=== PATIENT | female | born 1995 | race American Indian/Alaskan Native ===

== ENCOUNTER 2017-05-22 09:44 | Emergency (ER) | payer MEDICAID, OTHER ==
[2017-05-22 10:12] VITALS: BP 104/67
--- NOTE | 2017-05-22 13:25 | Emergency Department Report ---
HPI - General Chief Complaint: Allergic Reaction Time Seen by Provider: 05/22/17 13:10 ED Past Medical Hx - Past Medical History Previous Medical History?: No - Surgical History Past Surgical History?: No - Social History Smoking Status: Never Smoker Substance Use Type: Marijuana - Medications Home Medications: Home Medications Medication Instructions Recorded Confirmed Last Taken Type Cephalexin [Keflex] 500 mg PO Q12HR #14 cap 12/21/15 Unknown Rx Ibuprofen [Motrin] 600 mg PO Q8H PRN #12 tablet 12/21/15 Unknown Rx ED Review of Systems ROS: Stated complaint: ALLERGIES Other details as noted in HPI Physical Exam - Physical Exam Vital Signs: Vital Signs 05/22/17 10:08 Temperature 98.6 F Pulse Rate 89 Respiratory 16 Rate Blood Pressure 104/67 O2 Sat by Pulse 100 Oximetry ED Course Vital Signs 05/22/17 10:08 Temperature 98.6 F Pulse Rate 89 Respiratory 16 Rate Blood Pressure 104/67 O2 Sat by Pulse 100 Oximetry Critical care attestation.: If time is entered above; I have spent that time in minutes in the direct care of this critically ill patient, excluding procedure time. ED Disposition Condition: Stable Referrals: PRIMARY CARE [Primary Care Provider] - 3-5 Days Forms: AMA Form
== END 2017-05-22 13:12 | disposition left against medical advice (07) ==
LOC: ED 09:44
DX: T78.40XA Allergy, unspecified, initial encounter (principal); Z53.21 Procedure and treatment not carried out due to patient leaving prior to being seen by health care provider; X58.XXXA Exposure to other specified factors, initial encounter; Y93.89 Activity, other specified; Y99.8 Other external cause status; Y92.89 Other specified places as the place of occurrence of the external cause

== ENCOUNTER 2018-09-09 10:02 | Inpatient (IN) | payer MEDICAID, OTHER ==
[2018-09-09] MEDS ORDERED: NACL 0.9% 1000 ML 1,000 ML IV ONE ×2 (10:18→13:45)
[2018-09-09] MEDS ORDERED: ZOFRAN IV ONE (10:23)
[2018-09-09 10:40] LABS: Basophils # (Auto) 0.1 K/mm3 (0.0-0.1); Basophils % (Auto) 0.4 % (0.0-1.8); Eosinophils % (Auto) 0.1 % (0.0-4.3); Hematocrit 39.5 % (30.3-42.9); Hemoglobin 13.8 gm/dl (10.1-14.3); Lymphocytes # (Auto) 2.2 K/mm3 (1.2-5.4); Lymphocytes % (Auto) 13.6 % (13.4-35.0); Mean Corpuscular HGB Conc 35 % (30-34); Mean Corpuscular Volume 86 fl (79-97); Monocytes # (Auto) 1.8 K/mm3 (0.0-0.8); Monocytes % (Auto) 10.9 % (0.0-7.3); Platelet Count 294 K/mm3 (140-440); Red Blood Count 4.59 M/mm3 (3.65-5.03); Red Cell Distribution Width 14.3 % (13.2-15.2)
[2018-09-09 10:50] LABS: Bacteria,Urine 4+ /HPF (Negative); Bilirubin,Urine NEG (Negative); Blood,Urine NEG (Negative); Color,Urine Amber (Yellow); Mucus,Urine 3+ /HPF
[2018-09-09 10:51] LABS: RBC,Urine < 1.0 /HPF (0.0-6.0)
--- NOTE | 2018-09-09 11:02 | Emergency Department Report ---
ED N/V/D HPI - General Chief complaint: Nausea/Vomiting/Diarrhea Stated complaint: /HAS NOT EATEN X 7 DAYS Time Seen by Provider: 09/09/18 10:24 Source: patient Mode of arrival: Ambulatory Limitations: No Limitations - History of Present Illness Initial comments: 22-year-old female with no significant past medical history presents to the Hospital complaining of nausea, vomiting, and by mouth intolerance 9 days. Patient took her mother's Zofran with some intermittent improvement but has since run out of the medication. She denies pain, melena, hematochezia, hematemesis, fever, diarrhea, or dysuria. This is her third LMP 07/01/2018. She has not experienced this extreme nausea vomiting with previous pregnancies. She has not yet initiated care. She has not had ultrasound to confirm IUP. She denies history of ectopic, miscarriages, or abortions. She reports 11 pound weight loss in the last 2 weeks. She plans to follow up with a [facility] that is not affiliated here - Related Data Previous Rx's Medication Instructions Recorded Last Taken Type Ibuprofen [Motrin] 600 mg PO Q8H PRN #12 tablet 12/21/15 Unknown Rx cephALEXin [Keflex] 500 mg PO Q12HR #14 cap 12/21/15 Unknown Rx Allergies Allergy/AdvReac Type Severity Reaction Status Date / Time No Known Allergies Allergy Unverified 12/21/15 16:17 ED Review of Systems ROS: Stated complaint: /HAS NOT EATEN X 7 DAYS Other details as noted in HPI Comment: All other systems reviewed and negative ED Past Medical Hx - Past Medical History Previous Medical History?: No - Surgical History Past Surgical History?: No - Social History Smoking Status: Never Smoker Substance Use Type: None - Medications Home Medications: Home Medications Medication Instructions Recorded Confirmed Last Taken Type Ibuprofen [Motrin] 600 mg PO Q8H PRN #12 tablet 12/21/15 Unknown Rx cephALEXin [Keflex] 500 mg PO Q12HR #14 cap 12/21/15 Unknown Rx ED Physical Exam - General Limitations: No Limitations - Other Other exam information: General: No limitations, patient is alert in no acute distress Head exam: Atraumatic, normocephalic Eyes exam: Normal appearance ENT: Dry mucous membranes Neck exam: Normal inspection, full range of motion, no meningismus nontender Respiratory exam: Clear to auscultation bilateral, no wheezes, rales, crackles Cardiovascular: Tachycardic regular rhythm Abdomen: Soft, nondistended, and nontender, with normal bowel sounds, no rebound, or guarding Extremity: Full range of motion normal inspection no deformity Back: Normal Inspection, full range of motion, no tenderness Neurologic: Alert, oriented x3, cranial nerves intact, no motor or sensory def icit Psychiatric: normal affect, normal mood Skin: Warm, dry, intact ED Course Vital Signs 09/09/18 09/09/18 09/09/18 10:15 10:37 10:45 Temperature 98.3 F Pulse Rate 131 H 116 H Respiratory 20 29 H Rate Blood Pressure 109/70 O2 Sat by Pulse 100 100 100 Oximetry 09/09/18 09/09/18 09/09/18 11:01 11:15 11:31 Temperature Pulse Rate 113 H 112 H 98 H Respiratory 21 22 17 Rate Blood Pressure 130/83 130/83 128/69 O2 Sat by Pulse 100 100 100 Oximetry 09/09/18 11:45 Temperature Pulse Rate 119 H Respiratory 22 Rate Blood Pressure 128/69 O2 Sat by Pulse 100 Oximetry - Consultations Consultation #1: 09/09/18 13:59 case d/w earl with myobgyn, will place admit orders ED Medical Decision Making - Lab Data Result diagrams: 09/09/18 10:28 09/09/18 10:28 Lab Results 09/09/18 09/09/18 09/09/18 Range/Units 10:28 10:28 10:28 WBC 16.2 H (4.5-11.0) K/mm3 RBC 4.59 (3.65-5.03) M/mm3 Hgb 13.8 (10.1-14.3) gm/dl Hct 39.5 (30.3-42.9) % MCV 86 (79-97) fl MCH 30 (28-32) pg MCHC 35 H (30-34) % RDW 14.3 (13.2-15.2) % Plt Count 294 (140-440) K/mm3 Lymph % (Auto) 13.6 (13.4-35.0) % [place] % (Auto) 10.9 H (0.0-7.3) % Eos % (Auto) 0.1 (0.0-4.3) % Baso % (Auto) 0.4 (0.0-1.8) % Lymph # 2.2 (1.2-5.4) K/mm3 [place] # 1.8 H (0.0-0.8) K/mm3 Eos # 0.0 (0.0-0.4) K/mm3 Baso # 0.1 (0.0-0.1) K/mm3 Seg Neutrophils % 75.0 H (40.0-70.0) % Seg Neutrophils # 12.2 H (1.8-7.7) K/mm3 Sodium 136 L (137-145) mmol/L Potassium 2.8 L* (3.6-5.0) mmol/L Chloride 86.7 L (98-107) mmol/L Carbon Dioxide 26 (22-30) mmol/L Anion Gap 26 mmol/L BUN 16 (7-17) mg/dL Creatinine 0.5 L (0.7-1.2) mg/dL Estimated GFR > 60 ml/min BUN/Creatinine Ratio 32 % Glucose 101 H (65-100) mg/dL POC Glucose (70-105) Calcium 9.9 (8.4-10.2) mg/dL Magnesium 2.50 H (1.7-2.3) mg/dL Total Bilirubin 1.30 H (0.1-1.2) mg/dL AST 114 H (5-40) units/L ALT 189 H (7-56) units/L Alkaline Phosphatase 83 (35-129) units/L Total Protein 8.3 H (6.3-8.2) g/dL Albumin 4.2 (3.9-5) g/dL Albumin/Globulin Ratio 1.0 % Lipase 25 (13-60) units/L HCG, Quant [id number] H (0-4) mIU/mL Urine Color (Yellow) Urine Turbidity (Clear) Urine pH (5.0-7.0) Ur Specific [place] (1.003-1.030) Urine Protein (Negative) mg/dL Urine Glucose (UA) (Negative) mg/dL Urine Ketones (Negative) mg/dL Urine Blood (Negative) Urine Nitrite (Negative) Urine Bilirubin (Negative) Urine Urobilinogen (<2.0) mg/dL Ur Leukocyte Esterase (Negative) Urine WBC (Auto) (0.0-6.0) /HPF Urine RBC (Auto) (0.0-6.0) /HPF U Epithel Cells (Auto) (0-13.0) /HPF Urine Bacteria (Auto) (Negative) /HPF Urine Mucus /HPF Hepatitis A IgM Ab (NonReactive) Hep Bs Antigen (Negative) Hep B Core IgM Ab (NonReactive) Hepatitis C Antibody (NonReactive) 09/09/18 09/09/18 09/09/18 Range/Units 10:28 10:35 11:45 WBC (4.5-11.0) K/mm3 RBC (3.65-5.03) M/mm3 Hgb (10.1-14.3) gm/dl Hct (30.3-42.9) % MCV (79-97) fl MCH (28-32) pg MCHC (30-34) % RDW (13.2-15.2) % Plt Count (140-440) K/mm3 Lymph % (Auto) (13.4-35.0) % [place] % (Auto) (0.0-7.3) % Eos % (Auto) (0.0-4.3) % Baso % (Auto) (0.0-1.8) % Lymph # (1.2-5.4) K/mm3 [place] # (0.0-0.8) K/mm3 Eos # (0.0-0.4) K/mm3 Baso # (0.0-0.1) K/mm3 Seg Neutrophils % (40.0-70.0) % Seg Neutrophils # (1.8-7.7) K/mm3 Sodium (137-145) mmol/L Potassium (3.6-5.0) mmol/L Chloride (98-107) mmol/L Carbon Dioxide (22-30) mmol/L Anion Gap mmol/L BUN (7-17) mg/dL Creatinine (0.7-1.2) mg/dL Estimated GFR ml/min BUN/Creatinine Ratio % Glucose (65-100) mg/dL POC Glucose 72 (70-105) Calcium (8.4-10.2) mg/dL Magnesium (1.7-2.3) mg/dL Total Bilirubin (0.1-1.2) mg/dL AST (5-40) units/L ALT (7-56) units/L Alkaline Phosphatase (35-129) units/L Total Protein (6.3-8.2) g/dL Albumin (3.9-5) g/dL Albumin/Globulin Ratio % Lipase (13-60) units/L HCG, Quant (0-4) mIU/mL Urine Color [place] (Yellow) Urine Turbidity Cloudy (Clear) Urine pH 6.0 (5.0-7.0) Ur Specific [place] 1.028 (1.003-1.030) Urine Protein 30 mg/dl (Negative) mg/dL Urine Glucose (UA) Neg (Negative) mg/dL Urine Ketones Neg (Negative) mg/dL Urine Blood Neg (Negative) Urine Nitrite Neg (Negative) Urine Bilirubin Neg (Negative) Urine Urobilinogen 4.0 (<2.0) mg/dL Ur Leukocyte Esterase Tr (Negative) Urine WBC (Auto) 4.0 (0.0-6.0) /HPF Urine RBC (Auto) < 1.0 (0.0-6.0) /HPF U Epithel Cells (Auto) 9.0 (0-13.0) /HPF Urine Bacteria (Auto) 4+ (Negative) /HPF Urine Mucus 3+ /HPF Hepatitis A IgM Ab Non-reactive (NonReactive) Hep Bs Antigen Non-reactive (Negative) Hep B Core IgM Ab Non-reactive (NonReactive) Hepatitis C Antibody Non-reactive (NonReactive) - EKG Data -: EKG Interpreted by Tx EKG shows normal: sinus rhythm, axis (QRS 54), QRS complexes (QRSD 60), ST-T waves (NO STEMI) Rate: tachycardia (118) - EKG Data When compared to previous EKG there are: previous EKG unavailable - Radiology Data Radiology results: report reviewed ULTRASOUND ABDOMEN COMPLETE: TECHNIQUE: Transabdominal ultrasound with color Doppler interrogation. HISTORY: Elevated liver function tests, nausea and vomiting. COMPARISON: none. FINDINGS: LIVER: Normal. BILIARY SYSTEM: There is a mild degree of sludge in the gallbladder. No evidence for shadowing gallstones, wall thickening or surrounding fluid. The CBD measures 2.1 mm. PANCREAS: Normal. SPLEEN: Normal. KIDNEYS: Normal. AORTA/IVC: Normal. ASCITES: None. IMPRESSION: Sludge in the gallbladder. No evidence for acute cholecystitis. History: Twin gestation, nausea and vomiting Technique: Transabdominal imaging. Findings: The uterus measures 12 x 11 x 9 cm. No uterine mass is identified. A twin gestation is identified. No subchorionic hemorrhage. Baby A demonstrates a heart beat of 164 beats per minute. Estimated gestational age on ultrasound is 8 weeks 4 days. Baby B it demonstrates a heart 168 beats per minute. Estimated gestational age on ultrasound is 9 weeks 0 days. The ovaries are not visualized. No pelvic fluid collection. Impression: Viable twin gestation as described. No acute abnormality is detected. - Medical Decision Making Patient's symptoms are improving. Her nausea is decreasing and she is tolerating ice chips. By mouth potassium was provided with normal magnesium. Elevated LFTs noted with normal hepatitis panel. Ultrasound confirms gallbladder sludge without signs of right upper quadrant tenderness on exam. Patient will be admitted for further hydration due to persistent tachycardia despite aggressive IV hydration and to make sure she tolerates by mouth and is stable prior to discharge. [facility] [employer] to admit - Differential Diagnosis dehydration, hyperemesis, molar Critical Care Time: No Critical care attestation.: If time is entered above; I have spent that time in minutes in the direct care of this critically ill patient, excluding procedure time. ED Disposition Clinical Impression: Hyperemesis gravidarum, Hypokalemia, Dehydration, Weight loss, Twin gestation in first trimester, Gallbladder sludge, Elevated LFTs Disposition: DC-[id number] OP ADMIT IP TO THIS HOSP Is pt being admited?: Yes Condition: Stable Time of Disposition: 13:58 (MYobgyn admission)
[2018-09-09 11:47] LABS: Alanine Aminotransferase 189 units/L (7-56); Albumin 4.2 g/dL (3.9-5); BUN/Creatinine Ratio 32; Blood Urea Nitrogen 16 mg/dL (7-17); Calcium 9.9 mg/dL (8.4-10.2); Hemolysis Index 5
[2018-09-09] MEDS ORDERED: K-DUR PO ONE (11:57)
[2018-09-09] MEDS ORDERED: D5NS 1,000 ML IV SCH (12:00)
[2018-09-09 12:49] LABS: Hepatitis C Virus Antibody Non-Reactive (NonReactive)
--- NOTE | 2018-09-09 13:11 | Ultrasound Report ---
ULTRASOUND ABDOMEN COMPLETE: TECHNIQUE: Transabdominal ultrasound with color Doppler interrogation. HISTORY: Elevated liver function tests, nausea and vomiting. COMPARISON: none. FINDINGS: LIVER: Normal. BILIARY SYSTEM: There is a mild degree of sludge in the gallbladder. No evidence for shadowing gallstones, wall thickening or surrounding fluid. The CBD measures 2.1 mm. PANCREAS: Normal. SPLEEN: Normal. KIDNEYS: Normal. AORTA/IVC: Normal. ASCITES: None. IMPRESSION: Sludge in the gallbladder. No evidence for acute cholecystitis.
--- NOTE | 2018-09-09 13:13 | Ultrasound Report ---
ULTRASOUND OB LESS THAN 14 WEEKS ULTRASOUND OB LESS THAN 14 WEEKS History: Twin gestation, nausea and vomiting Technique: Transabdominal imaging. Findings: The uterus measures 12 x 11 x 9 cm. No uterine mass is identified. A twin gestation is identified. No subchorionic hemorrhage. Baby A demonstrates a heart beat of 164 beats per minute. Estimated gestational age on ultrasound is 8 weeks 4 days. Baby B it demonstrates a heart 168 beats per minute. Estimated gestational age on ultrasound is 9 weeks 0 days. The ovaries are not visualized. No pelvic fluid collection. Impression: Viable twin gestation as described. No acute abnormality is detected.
[2018-09-09 13:21] LABS: Hepatitis B Surface Antigen Non-Reactive (Negative)
--- NOTE | 2018-09-09 14:11 | History and Physical Report ---
<SAJAN SHIPLEY - Last Filed: 09/09/18 20:34> History of Present Illness Date of examination: 09/09/18 (N&V @ 8-9w GA twins) History of present illness: Pt presented to ED today with c/o 11 pound wgt loss over the last 2 weeks. She reports severe N&V for the last several days. She has not established care as of yet but will call @ [facility] and make an appt. EAB 2011 2013 2015 Med Hx none Surg Hx none Denies smoking, drinking, drug use No STD hx Past History - Obstetrical History Expected Date of Delivery: 04/14/19 Actual Gestation: 9 Week(s) 0 Day(s) : 4 Para: 2 Hx # Term Pregnancies: 2 Number of Pregnancies: 0 Spontaneous Abortions: 0 Induced : 1 Number of Living Children: 2 Medications and Allergies Allergies Allergy/AdvReac Type Severity Reaction Status Date / Time No Known Allergies Allergy Unverified 12/21/15 16:17 Home Medications Medication Instructions Recorded Confirmed Last Taken Type No Known Home Medications [No 09/09/18 09/09/18 Unknown History Reported Home Medications] Active Meds: Active Medications Dextrose/Sodium Chloride (D5ns) 1,000 mls @ 999 mls/hr IV DIRECT KERRY Last Admin: 09/09/18 11:44 Dose: 999 mls/hr Documented by: Sodium Chloride (Nacl 0.9% 1000 Ml) 1,000 mls @ 999 mls/hr IV BOLUS ONE Stop: 09/09/18 14:45 - Vital Signs Vital signs: Vital Signs Temp Pulse Resp BP Pulse Ox 98.3 F 131 H 20 109/70 100 09/09/18 10:15 09/09/18 10:15 09/09/18 10:15 09/09/18 10:15 09/09/18 10:15 Temp Pulse Resp BP Pulse Ox 98.3 F 119 H 22 128/69 100 09/09/18 10:15 09/09/18 11:45 09/09/18 11:45 09/09/18 11:45 09/09/18 11:45 - Physical Exam Breasts: Positive: deferred Cardiovascular: Regular rate, Normal S1, Normal S2 Lungs: Positive: Normal air movement Abdomen: Positive: normal appearance, soft, normal bowel sounds. Negative: distention, tenderness Genitourinary (Female): Positive: normal external genitalia Vulva: both: normal Vagina: Positive: normal moisture. Negative: discharge Cervix: Negative: lesion, discharge Uterus: Positive: normal size, normal contour Adnexa: both: normal Anus/Rectum: Positive: normal perianal skin, heme negative. Negative: rectal mass, hemorrhoids Extremities: Positive: normal Deep Tendon Reflex Grade: Normal +2 Results Result Diagrams: 09/09/18 10:28 09/09/18 10:28 Abnormal lab results 09/09/18 09/09/18 09/09/18 Range/Units 10:28 10:28 10:28 WBC 16.2 H (4.5-11.0) K/mm3 MCHC 35 H (30-34) % [place] % (Auto) 10.9 H (0.0-7.3) % [place] # 1.8 H (0.0-0.8) K/mm3 Seg Neutrophils % 75.0 H (40.0-70.0) % Seg Neutrophils # 12.2 H (1.8-7.7) K/mm3 Sodium 136 L (137-145) mmol/L Potassium 2.8 L* (3.6-5.0) mmol/L Chloride 86.7 L (98-107) mmol/L Creatinine 0.5 L (0.7-1.2) mg/dL Glucose 101 H (65-100) mg/dL Magnesium 2.50 H (1.7-2.3) mg/dL Total Bilirubin 1.30 H (0.1-1.2) mg/dL AST 114 H (5-40) units/L ALT 189 H (7-56) units/L Total Protein 8.3 H (6.3-8.2) g/dL HCG, Quant [id number] H (0-4) mIU/mL All other labs normal. Assessment and Plan - Patient Problems (1) Hyperemesis gravidarum Onset Date: ~09/09/18 Current Visit: Yes Status: Acute Plan to address problem: 22yo @ 9 weeks Twin gestation with hyperemisis. Pt seen through ED Triage and decision made to admit for hyperemisis pathway. made aware of admission Orders in EMR. Pt agrees with POC. Pt seen @ 2030 and states she already feels much better. All questions addressed. <BEBETO POOLE D - Last Filed: 09/09/18 21:42> History of Present Illness Date of admission: 09/09/18 13:58 Medications and Allergies Active Meds: Active Medications Diphenhydramine HCl (Benadryl) 25 mg PO Q6H PRN PRN Reason: Itching Last Admin: 09/09/18 19:28 Dose: 25 mg Documented by: Dextrose/Lactated Ringer's (D5lr) 1,000 mls @ 500 mls/hr IV DIRECT KERRY Stop: 09/10/18 15:59 Last Admin: 09/09/18 19:30 Dose: 500 mls/hr Documented by: Dextrose/Lactated Ringer's (D5lr) 1,000 mls @ 150 mls/hr IV DIRECT KERRY Last Admin: 09/09/18 21:31 Dose: 150 mls/hr Documented by: Metoclopramide HCl (Reglan) 10 mg IV Q6H KERRY Stop: 09/10/18 08:01 Last Admin: 09/09/18 20:17 Dose: 10 mg Documented by: Metoclopramide HCl (Reglan) 10 mg PO Q6H PRN PRN Reason: Nausea And Vomiting Ondansetron HCl (Zofran) 4 mg IV Q6H PRN PRN Reason: N/V unrelieved by Reglan Potassium Chloride (K-Dur) 20 meq PO QDAY KERRY Promethazine HCl (Phenergan) 25 mg MT Q6H PRN PRN Reason: Nausea - Vital Signs Vital signs: Vital Signs Temp Pulse Resp BP Pulse Ox 98.3 F 131 H 20 109/70 100 09/09/18 10:15 09/09/18 10:15 09/09/18 10:15 09/09/18 10:15 09/09/18 10:15 Temp Pulse Resp BP Pulse Ox 98.3 F 121 H 18 106/50 98 09/09/18 21:09 09/09/18 21:09 09/09/18 21:09 09/09/18 21:09 09/09/18 21:09 Results Result Diagrams: 09/09/18 10:28 09/09/18 10:28 Abnormal lab results 09/09/18 09/09/1819 Range/Units 10:28 10:28 10:28 WBC 16.2 H (4.5-11.0) K/mm3 MCHC 35 H (30-34) % [place] % (Auto) 10.9 H (0.0-7.3) % [place] # 1.8 H (0.0-0.8) K/mm3 Seg Neutrophils % 75.0 H (40.0-70.0) % Seg Neutrophils # 12.2 H (1.8-7.7) K/mm3 Sodium 136 L (137-145) mmol/L Potassium 2.8 L* (3.6-5.0) mmol/L Chloride 86.7 L (98-107) mmol/L Creatinine 0.5 L (0.7-1.2) mg/dL Glucose 101 H (65-100) mg/dL Magnesium 2.50 H (1.7-2.3) mg/dL Total Bilirubin 1.30 H (0.1-1.2) mg/dL AST 114 H (5-40) units/L ALT 189 H (7-56) units/L Total Protein 8.3 H (6.3-8.2) g/dL HCG, Quant [id number] H (0-4) mIU/mL All other labs normal. Assessment and Plan See orders, questions encouraged and answered, she voiced understanding and agrees with plan of care - Patient Problems (1) Dehydration Current Visit: Yes Status: Acute (2) Elevated LFTs Current Visit: Yes Status: Acute (3) Gallbladder sludge Current Visit: Yes Status: Acute (4) Hyperemesis gravidarum Onset Date: ~09/09/18 Current Visit: Yes Status: Acute (5) Hypokalemia Current Visit: Yes Status: Acute (6) Twin gestation in first trimester Current Visit: Yes Status: Acute
[2018-09-09] MEDS ORDERED: PHENERGAN PR ONE (14:41)
[2018-09-09] MEDS ORDERED: D5LR 1,000 ML IV ONE (14:41)
[2018-09-09] MEDS ORDERED: KCL 10MEQ/100ML 10 MEQ/100 ML BAG IV ONE (14:41)
[2018-09-09] MEDS ORDERED: REGLAN ONE (14:42)
[2018-09-09] MEDS: KCL 10MEQ/100ML 10 MEQ/100 ML BAG IV SCH ×2 (14:53→20:30)
[2018-09-09] MEDS: REGLAN IV SCH ×2 (14:53→20:17)
[2018-09-09] MEDS: PHENERGAN PR SCH ×2 (14:53→20:18)
[2018-09-09] MEDS: D5LR 1,000 ML IV SCH ×3 (15:58→21:31)
[2018-09-09] MEDS ORDERED: BENADRYL PO PRN (18:37)
[2018-09-09] MEDS ORDERED: PHENERGAN PR PRN (21:00)
[2018-09-10] MEDS: REGLAN IV SCH ×2 (02:08→08:00)
[2018-09-10] MEDS: D5LR 1,000 ML IV SCH (04:10)
[2018-09-10] MEDS: ZOFRAN IV PRN ×3 (08:05→22:34)
[2018-09-10 08:11] LABS: Hemoglobin 10.3 gm/dl (10.1-14.3); Mean Corpuscular HGB Conc 35 % (30-34); Mean Corpuscular Volume 86 fl (79-97); Platelet Count 174 K/mm3 (140-440); Red Blood Count 3.36 M/mm3 (3.65-5.03); Red Cell Distribution Width 14.3 % (13.2-15.2)
--- NOTE | 2018-09-10 08:24 | Progress Note ---
Assessment and Plan 22y/o @ 9wks, twin gestation, admitted for HG. pt reports feeling better. States she vomited once this morning. She c/o post nasal drip causing her to swallow mucus making her vomit more. Pt tolerating clear liquids at this time. repeat labs drawn but not yet resulted. Will continue HG pathway. She denies cramping or vag bleeding. - Patient Problems (1) Elevated LFTs Current Visit: Yes Status: Acute Plan to address problem: labs redrawn - pending results (2) Gallbladder sludge Current Visit: Yes Status: Acute (3) Hyperemesis gravidarum Onset Date: ~09/09/18 Current Visit: Yes Status: Acute Plan to address problem: continue current pathway (4) Hypokalemia Current Visit: Yes Status: Acute Plan to address problem: K replacement CMP results pending. Subjective - Subjective Date of service: 09/10/18 ([facility] note) Principal diagnosis: Hyperemesis, twin gestation, hypokalemia Patient reports: no new complaints, no vaginal bleeding Objective - Vital Signs Vital Signs: Vital Signs - 12hr 09/09/18 09/10/18 09/10/18 21:09 00:19 05:18 Temperature 98.3 F 97.8 F 98.3 F Pulse Rate 121 H 124 H 112 H Respiratory 18 18 18 Rate Blood Pressure 106/50 110/64 103/56 O2 Sat by Pulse 98 100 100 Oximetry - Exam Breasts: normal Cardiovascular: Regular rate Lungs: Clear to auscultation, Normal air movement Abdomen: Present: normal appearance, soft - Labs Labs: Abnormal Labs 09/09/18 09/09/18 09/09/18 10:28 10:28 10:28 WBC 16.2 H RBC Hct MCHC 35 H [place] % (Auto) 10.9 H [place] # 1.8 H Seg Neutrophils % 75.0 H Seg Neutrophils # 12.2 H Sodium 136 L Potassium 2.8 L* Chloride 86.7 L Creatinine 0.5 L Glucose 101 H Magnesium 2.50 H Total Bilirubin 1.30 H AST 114 H ALT 189 H Total Protein 8.3 H HCG, Quant [id number] H 09/10/18 07:46 WBC RBC 3.36 L Hct 29.0 L D MCHC 35 H [place] % (Auto) [place] # Seg Neutrophils % Seg Neutrophils # Sodium Potassium Chloride Creatinine Glucose Magnesium Total Bilirubin AST ALT Total Protein HCG, Quant Laboratory Results - last 24 hr 09/09/18 09/09/18 09/09/18 10:28 10:28 10:28 WBC 16.2 H RBC 4.59 Hgb 13.8 Hct 39.5 MCV 86 MCH 30 MCHC 35 H RDW 14.3 Plt Count 294 Lymph % (Auto) 13.6 [place] % (Auto) 10.9 H Eos % (Auto) 0.1 Baso % (Auto) 0.4 Lymph # 2.2 [place] # 1.8 H Eos # 0.0 Baso # 0.1 Seg Neutrophils % 75.0 H Seg Neutrophils # 12.2 H Sodium 136 L Potassium 2.8 L* Chloride 86.7 L Carbon Dioxide 26 Anion Gap 26 BUN 16 Creatinine 0.5 L Estimated GFR > 60 BUN/Creatinine Ratio 32 Glucose 101 H POC Glucose Calcium 9.9 Magnesium 2.50 H Total Bilirubin 1.30 H AST 114 H ALT 189 H Alkaline Phosphatase 83 Total Protein 8.3 H Albumin 4.2 Albumin/Globulin Ratio 1.0 Lipase 25 HCG, Quant [id number] H Urine Color Urine Turbidity Urine pH Ur Specific [place] Urine Protein Urine Glucose (UA) Urine Ketones Urine Blood Urine Nitrite Urine Bilirubin Urine Urobilinogen Ur Leukocyte Esterase Urine WBC (Auto) Urine RBC (Auto) U Epithel Cells (Auto) Urine Bacteria (Auto) Urine Mucus Hepatitis A IgM Ab Hep Bs Antigen Hep B Core IgM Ab Hepatitis C Antibody 09/09/18 09/09/18 09/09/18 10:28 10:35 11:45 WBC RBC Hgb Hct MCV MCH MCHC RDW Plt Count Lymph % (Auto) [place] % (Auto) Eos % (Auto) Baso % (Auto) Lymph # [place] # Eos # Baso # Seg Neutrophils % Seg Neutrophils # Sodium Potassium Chloride Carbon Dioxide Anion Gap BUN Creatinine Estimated GFR BUN/Creatinine Ratio Glucose POC Glucose 72 Calcium Magnesium Total Bilirubin AST ALT Alkaline Phosphatase Total Protein Albumin Albumin/Globulin Ratio Lipase HCG, Quant Urine Color [place] Urine Turbidity Cloudy Urine pH 6.0 Ur Specific [place] 1.028 Urine Protein 30 mg/dl Urine Glucose (UA) Neg Urine Ketones Neg Urine Blood Neg Urine Nitrite Neg Urine Bilirubin Neg Urine Urobilinogen 4.0 Ur Leukocyte Esterase Tr Urine WBC (Auto) 4.0 Urine RBC (Auto) < 1.0 U Epithel Cells (Auto) 9.0 Urine Bacteria (Auto) 4+ Urine Mucus 3+ Hepatitis A IgM Ab Non-reactive Hep Bs Antigen Non-reactive Hep B Core IgM Ab Non-reactive Hepatitis C Antibody Non-reactive 09/10/18 07:46 WBC 7.8 RBC 3.36 L Hgb 10.3 D Hct 29.0 L D MCV 86 MCH 31 MCHC 35 H RDW 14.3 Plt Count 174 Lymph % (Auto) [place] % (Auto) Eos % (Auto) Baso % (Auto) Lymph # [place] # Eos # Baso # Seg Neutrophils % Seg Neutrophils # Sodium Potassium Chloride Carbon Dioxide Anion Gap BUN Creatinine Estimated GFR BUN/Creatinine Ratio Glucose POC Glucose Calcium Magnesium Total Bilirubin AST ALT Alkaline Phosphatase Total Protein Albumin Albumin/Globulin Ratio Lipase HCG, Quant Urine Color Urine Turbidity Urine pH Ur Specific [place] Urine Protein Urine Glucose (UA) Urine Ketones Urine Blood Urine Nitrite Urine Bilirubin Urine Urobilinogen Ur Leukocyte Esterase Urine WBC (Auto) Urine RBC (Auto) U Epithel Cells (Auto) Urine Bacteria (Auto) Urine Mucus Hepatitis A IgM Ab Hep Bs Antigen Hep B Core IgM Ab Hepatitis C Antibody
[2018-09-10 08:39] LABS: Alanine Aminotransferase 134 units/L (7-56); Albumin 2.6 g/dL (3.9-5); BUN/Creatinine Ratio 20; Blood Urea Nitrogen 6 mg/dL (7-17); Calcium 8.2 mg/dL (8.4-10.2); Hemolysis Index 14
--- NOTE | 2018-09-10 08:45 | Event Note ---
Date: 09/10/18 Agree with MW exam and noted. Will con't to monitor at this time. LFTs though still elevated have improved. Also WBC is now normal. K+ still pending at this time. Con't clear liquid diet at this time.
[2018-09-10] MEDS ORDERED: PRENATAL VITAMIN PO SCH (10:00)
[2018-09-10] MEDS: K-DUR PO SCH (10:00)
[2018-09-10] MEDS ORDERED: REGLAN PO PRN (14:00)
[2018-09-11] MEDS: D5LR 1,000 ML IV SCH ×2 (02:55→09:49)
[2018-09-11] MEDS: ZOFRAN IV PRN (05:16)
[2018-09-11] MEDS: K-DUR PO SCH (09:46)
--- NOTE | 2018-09-11 10:34 | Discharge Summary ---
Providers - Providers Date of Admission: 09/09/18 13:58 Date of discharge: 09/11/18 Attending physician: SIMONE WILSON 09/09/18 13:58 Consult to Dietitian/Nutrition [CONS] Routine Physician Instructions: Reason For Exam: GB sludge/hyperemisis/twin gestation Reason for Consult: hyper grav Reason for Consult: Malnutrition [facility] MD Hospitalization Condition: Good Hospital course: Uncomplicated Disposition: DC-01 TO HOME OR SELFCARE - Discharge Diagnoses (1) Dehydration Status: Resolved (2) Elevated LFTs Status: Acute (3) Gallbladder sludge Status: Chronic (4) Hyperemesis gravidarum Status: Acute (5) Hypokalemia Status: Resolved (6) Twin gestation in first trimester Status: Acute Core Measure Documentation - Palliative Care Palliative Care/ Comfort Measures: Not Applicable - Core Measures Any of the following diagnoses?: none Exam - Physical Exam Narrative exam: Resting in bed, no complaints, no further nausea or vomiting, states she has been tolerating a regular diet without any problems. She desires discharge home. - Constitutional Vitals: Temp Pulse Resp BP Pulse Ox 97.8 F 98 H 18 106/63 100 09/11/18 07:39 09/11/18 07:39 09/11/18 07:39 09/11/18 07:39 09/11/18 05:05 General appearance: Present: no acute distress Plan Activity: other (No sex) Weight Bearing Status: Full Weight Bearing Diet: low fat Special Instructions: no heavy lifting (greater than 25lbs) Follow up with: CHRIS MIXON MD [Primary Care Provider] - 7 Days BEBETO POOLE MD [Staff Physician] - 7 Days Prescriptions: Metoclopramide [Reglan] 10 mg PO Q6HR PRN #30 tab PRN Reason: Nausea
[2018-09-11 12:22] VITALS: BP 111/60
== END 2018-09-11 14:00 | disposition home or self-care (01) | DRG 833 ==
LOC: ED 10:02 → OB 13:58
PROVIDERS: ADMIT Obstetrics & Gynecology; ATTEND Obstetrics & Gynecology
DX: O21.1 Hyperemesis gravidarum with metabolic disturbance (principal); E86.0 Dehydration; K82.8 Other specified diseases of gallbladder; O30.001 Twin pregnancy, unspecified number of placenta and unspecified number of amniotic sacs, first trimester; O99.611 Diseases of the digestive system complicating pregnancy, first trimester; Z3A.09 9 weeks gestation of pregnancy
CPT/HCPCS: 36415; 76700; 76801; 76802; 80053; 80074; 81001; 82962; 83690; 83735; 84702; 85025; 85027; 93005; 93010; G0378; J2405; J2765; J3480; J7030; J7042; J7121